=== PATIENT | female | born 2000 | race Caucasian/White ===

== ENCOUNTER 2021-03-01 15:33 | Emergency (ER) | payer BC, SELFPAY ==
[2021-03-01 15:47] VITALS: BP 122/64; PULSE 96; RESP 18; TEMP 37.1; O2SAT 100
--- NOTE | 2021-03-01 16:27 | ED.GENADULT ---
HPI - General Adult General Chief complaint: Extremity Injury, Upper Stated complaint: Left shoulder pain Time Seen by Provider: 03/01/21 16:28 Source: patient and RN notes reviewed Mode of arrival: ambulatory Limitations: no limitations History of Present Illness HPI narrative: 20-year-old female presents concern for left shoulder pain without injury. Reports for the past 1 and half weeks she has had left anterior shoulder pain that is exacerbated with movement. Reports she is taken ibuprofen 1 or 2 times and Tylenol once. Reports she has tried heat twice with little relief. She denies any left arm pain, weakness, hand pain, decreased groundsman strength. Reports decreased shoulder range of motion. Denies any chest pain or shortness of breath. MD complaint: Shoulder pain Related Data Home Medications Medication Instructions Recorded Confirmed etonogestrel [Nexplanon] 1 implant SUBDERMAL ONCE 03/01/21 03/01/21 Allergies Allergy/AdvReac Type Severity Reaction Status Date / Time No Known Drug Allergies Allergy Unknown Unknown Verified 03/01/21 15:57 Review of Systems Review of Systems: Narrative: CONSTITUTIONAL: Denies malaise, chills, sweats, or fever. CARDIOVASCULAR: Denies chest pain, palpitations, or edema. RESPIRATORY: Denies cough or dyspnea. SKIN: Denies bruising, abrasions, lacerations, redness MUSCULOSKELETAL: Reports right shoulder pain, decreased range of motion NEUROLOGIC: Denies numbness, weakness All systems reviewed & are unremarkable except as noted in HPI and below PMFSH Comments At time of signature, agree with nursing past medical, surgical, social and family history. There is no relevant family history pertinent to the presenting complaint Exam Narrative: Exam Narrative: GENERAL: Well-appearing, well-nourished, and in no acute distress. HEAD: Normocephalic, atraumatic. EYES: PERRLA, conjunctivae clear ENT: Mucous membranes moist. NECK: Supple. No lymphadenopathy. CHEST: No respiratory distress. Clear to auscultation. No bony deformities, no asymmetry. Speaks in full sentences. HEART: Regular rate and rhythm. No murmur heard. Normal peripheral pulses. EXTREMITIES: Left shoulder has Limited range of motion, no edema, normal strength and sensation. SKIN: Warm, dry, no rash, ecchymosis or erythema. NEURO: Alert and oriented x3. PSYCH: Normal mood and affect Course Course Emergency Course: Patient is aware of diagnosis, understands and agrees to treatment plan. Anticipatory guidance given. Patient agrees to follow-up as directed and is aware of reasons to seek care at the emergency department. Portions of this record may have been created with voice recognition software Vital Signs Vital signs: Vital Signs Temperature 98.7 F 03/01/21 15:47 Pulse Rate 96 03/01/21 15:47 Respiratory Rate 18 03/01/21 15:47 Blood Pressure 122/64 03/01/21 15:47 Pulse Oximetry 100 03/01/21 15:47 Temperature 98.7 F 03/01/21 15:47 Pulse Rate 96 03/01/21 15:47 Respiratory Rate 18 03/01/21 15:47 Blood Pressure 122/64 03/01/21 15:47 Pulse Oximetry 100 03/01/21 15:47 Reviewed. Medical Decision Making MDM Narrative Medical decision making narrative: Patients pain is consistent with musculoskeletal etiology. No signs of neurological or vascular compromise on exam. Compartments and tissues are soft without signs of compartment syndrome. Pain is felt appropriate for further evaluation on an outpatient basis. Vital Signs Vital Signs: Vital Signs Temperature 98.7 F 03/01/21 15:47 Pulse Rate 96 03/01/21 15:47 Respiratory Rate 18 03/01/21 15:47 Blood Pressure 122/64 03/01/21 15:47 Pulse Oximetry 100 03/01/21 15:47 Temperature 98.7 F 03/01/21 15:47 Pulse Rate 96 03/01/21 15:47 Respiratory Rate 18 03/01/21 15:47 Blood Pressure 122/64 03/01/21 15:47 Pulse Oximetry 100 03/01/21 15:47 Critical Care Time Critical Care Time Critical Care Time: No D
== END 2021-03-01 16:45 | disposition home or self-care (01) ==
PROVIDERS: Emergency Provider Nurse Practitioner
DX: M25.512 Pain in left shoulder (principal)
CPT/HCPCS: 99203; G0463